=== PATIENT | female | born 1950 | race Two or more races ===

== ENCOUNTER 2023-05-30 07:36 | Emergency (ER) | payer OTHER ==
[2023-05-30] MEDS ORDERED: HYDROcodone-ACET 5/325MG TAB ONE (09:16)
== END 2023-05-30 12:35 | disposition home or self-care (01) ==
LOC: ER 07:36
DX: S52.512A Displaced fracture of left radial styloid process, initial encounter for closed fracture (principal); S52.612A Displaced fracture of left ulna styloid process, initial encounter for closed fracture; I10 Essential (primary) hypertension; Z98.890 Other specified postprocedural states; Z79.899 Other long term (current) drug therapy; W18.39XA Other fall on same level, initial encounter; Y93.89 Activity, other specified; Y92.89 Other specified places as the place of occurrence of the external cause; Y99.8 Other external cause status
CPT/HCPCS: 29125; 73110